=== PATIENT | male | born 1960 | race Caucasian/White ===

== ENCOUNTER 2021-07-05 14:44 | Outpatient (CLI) | payer OTHER ==
--- NOTE | 2021-07-05 16:35 | Ultrasound Report ---
PROCEDURE: Abdomen Limited INDICATIONS: BILLARY CIRRHOSIS TECHNIQUE: Real-time scanning was performed of the abdominal and retroperitoneal organs, with image documentatio n. COMPARISON: None. FINDINGS: Liver: Liver is normal in size. Heterogeneously coarse liver parenchymal echotexture is seen. 0.7 x 0.7 x 0.6 cm echogenic focus is seen in left lobe of liver. 0.8 x 0.7 x 0.8 cm echogenic focus is als o noted in more inferior left hepatic lobe. No internal vascularity is seen. Gallbladder: There is no gallstone. No gallbladder wall thickening or pericholecystic fluid. No sonog raphic Hewitt's sign. Biliary ducts: Intrahepatic bile ducts are non-dilated. Extrahepatic bile duct caliber measures 4.2 mm. Normal is 6-7 mm or less in diameter, or 10 mm or less post-cholecystectomy. Pancreas: Visualized portions of the pancreas are sonographically normal. Kidneys: Kidneys are normal in size and echotexture. Right kidney measures 12.2 cm long; left kidne y measures 1.4 cm long. No hydronephrosis or nephrolithiasis. No solid masses. IVC: Intrahepatic inferior vena cava is patent. Miscellaneous: No free abdominal fluid. IMPRESSION: 1. Suggestion of hepatic steatosis. 2 subcentimeter echogenic foci are noted in left lobe of liver wh ich may represent small hemangiomas. 2. Normal-appearing gallbladder. No biliary ductal dilatation. 3. Rest of the exam is unremarkable. Reviewed by: Janak Pruitt MD on 07/05/2021 4:34 PM PDT Approved by: Janak Pruitt MD on 07/05/2021 4:34 PM PDT Station ID: [id number]
== END 2021-07-05 14:45 | disposition home or self-care (01) ==
LOC: DI 14:44
PROVIDERS: ATTEND Internal Medicine Infectious Disease
DX: K74.5 Biliary cirrhosis, unspecified (principal); R93.2 Abnormal findings on diagnostic imaging of liver and biliary tract

== ENCOUNTER 2021-08-02 13:15 | Outpatient (CLI) | payer OTHER ==
[2021-08-02 13:45] LABS: ALBUMIN 4.8 g/dL (3.2-5.5); ALBUMIN/GLOBULIN RATIO 1.7 (1.0-2.2); CALCIUM 9.7 mg/dL (8.5-10.3); CREATININE 0.9 mg/dL (0.6-1.2); POTASSIUM 4.3 mmol/L (3.5-5.0); TOTAL PROTEIN 7.6 g/dL (6.7-8.2)
== END 2021-08-02 13:16 | disposition home or self-care (01) ==
LOC: LAB 13:15
PROVIDERS: ATTEND Internal Medicine Infectious Disease
DX: K74.60 Unspecified cirrhosis of liver (principal)
CPT/HCPCS: 36415; 80053; 81599; 82105

== ENCOUNTER 2022-04-10 06:43 | Outpatient (CLI) | payer OTHER ==
--- NOTE | 2022-04-11 09:00 | Ultrasound Report ---
PROCEDURE: Abdomen Limited INDICATIONS: BILIARY CIRRHOSIS TECHNIQUE: Real-time focused scanning was performed of the abdomen, with image documentation. COMPARISON: Ultrasound abdomen, limited, 07/05/2021. FINDINGS: Liver is normal in size. Liver demonstrates coarse echotexture. There is a 0.8 x 0.7 x 0.6 cm hyperechoic nodule in the left hepatic lobe, most likely a hepatic hemangioma. No gallstones. No gallbladder wall thickening, pericholecystic fluid collection or sonographic Hewitt sign. No intrahepatic biliary dilation. Common bile duct is normal in caliber measuring 4.1 mm. Visualized pancreas is normal. Right kidney is normal. IMPRESSION: 1. Liver demonstrates coarse echotexture consistent with biliary cirrhosis. 2. A 0.8 x 0.7 x 0.6 cm hypoechoic nodule in the left hepatic lobe. The second hypoechoic nodule desc ribed on the last exam is not visualized on the current exam. Statistically, hyperechoic nodules are most likely hepatic hemangiomas in patients with no known liver disease. In this patient with known l iver disease, liver protocol MRI is recommended for follow-up. Reviewed by: Gregorio Matos MD on 04/11/2022 8:58 AM PDT Approved by: Gregorio Matos MD on 04/11/2022 8:58 AM PDT Station ID: [id number]
== END 2022-04-10 06:44 | disposition home or self-care (01) ==
LOC: DI 06:43
PROVIDERS: ATTEND Internal Medicine Infectious Disease
DX: K74.5 Biliary cirrhosis, unspecified (principal); K76.89 Other specified diseases of liver; K74.60 Unspecified cirrhosis of liver
CPT/HCPCS: 36415; 80053; 82105; 85610

== ENCOUNTER 2022-04-10 07:26 | Outpatient (CLI) | payer OTHER ==
[2022-04-10 07:50] LABS: ALBUMIN 4.3 g/dL (3.2-5.5); ALBUMIN/GLOBULIN RATIO 1.3 (1.0-2.2); BILIRUBIN,TOTAL 1.2 mg/dL (0.2-1.0); CALCIUM 9.4 mg/dL (8.5-10.3); POTASSIUM 4.4 mmol/L (3.5-5.0); TOTAL PROTEIN 7.6 g/dL (6.7-8.2)
[2022-04-10 08:32] LABS: INR 1.1 (0.8-1.2); PT - PROTHROMBIN TIME 12.6 secs (9.9-12.6)
== END 2022-04-10 07:27 | disposition home or self-care (01) ==
LOC: LAB 07:26
PROVIDERS: ATTEND Internal Medicine Infectious Disease
DX: K74.60 Unspecified cirrhosis of liver (principal); K74.5 Biliary cirrhosis, unspecified
CPT/HCPCS: 36415; 80053; 82105; 85610